=== PATIENT | male | born 1940 | race Caucasian/White ===

== ENCOUNTER → 2018-03-17 | Day surgery (SDC) | payer MEDICARE, OTHER ==
[2018-03-14 16:09] LABS: BASOPHILS % 0.3 % (0.0-1.0); EOSINOPHILS # (AUTO) 0.1 (0.0-0.4); EOSINOPHILS % 0.7 % (0.0-6.0); HEMATOCRIT 45.4 % (38.2-49.6); HEMOGLOBIN 15.6 g/dL (14.0-18.0); LYMPHOCYTES # (AUTO) 1.7 (1.0-3.2); LYMPHOCYTES % 18.3 % (18.0-39.1); MEAN CORPUSCULAR HEMOGLOBIN 30.8 pg (28-32); MEAN CORPUSCULAR HGB CONC 34.4 g/dL (31-35); MEAN CORPUSCULAR VOLUME 89.5 fL (81-99); MONOCYTES # (AUTO) 0.7 (0.2-0.8); MONOCYTES % 7.2 % (4.4-11.3); NEUTROPHILS # (AUTO) 6.7 (2.1-6.9); PLATELET COUNT 185 x10e3/uL (140-360); RED BLOOD COUNT 5.07 x10e6/uL (4.3-5.7); RED CELL DISTRIBUTION WIDTH 13.6 % (11.7-14.4)
[~2018-03-17] MED LIST: CELEBREX100 MG PO; DEXTROSE 5% 250ML 250 ML IV ONE; EPHEDRINE SULFATE INJ 50 MG/10 ML SYR ONE; FENTANYL CITRATE/PF 100MCG/2 ML INJ ONE; FINASTERIDE5 MG PO; HYDROXYCHLOROQ200 MG PO; HYOSCYAMINE SULFATE 0.5 MG/ML AMP ONE; LIDOCAINE HCL 2% LOCAL INJ 5 ML SDV VIAL INJ ONE; MIDAZOLAM HCL 2 MG/2 ML VIAL ONE; NITROSTAT0.4 MG PO; POTASSIUM CITR10 MEQ PO; PROPOFOL IV EMULSION 10 MG/ML 50 ML VIAL ONE; SUCRALFATE1 GM PO; TRAMADOL HCL50 M1 PO; TRICOR145 MG PO; UROXATRAL10 MG PO; XARELTO10 MG PO; Z.0.ALLOPURINOL100 M PO; Z.0.ATENOLOL50 MG PO; Z.0.CELEBREX100 MG PO; Z.0.GLYBURIDE5 MG PO; Z.0.JANUVIA50 MG PO; Z.0.NEXIUM40 MG PO; Z.0.OXYBUTYNIN CHLOR PO; Z.0.PLAVIX75 MG PO; Z.0.TRICOR48 MG PO; Z.0.ZETIA10 MG PO
--- NOTE | 2018-03-17 14:19 | Operative Report ---
DATE OF PROCEDURE: March 17, 2018 REFERRING PHYSICIAN: Dr. James Vieira PROCEDURES PERFORMED 1. Esophagogastroduodenoscopy with biopsies and esophageal dilatation. 2. Colonoscopy with polypectomy. INDICATIONS FOR EGD: Heartburn, indigestion, dysphagia. INDICATIONS FOR COLONOSCOPY: Colorectal cancer screening. Rectal bleeding. Sister with colon cancer. Personal history of colon polyps. MEDICATION: Patient was done under MAC. Please see anesthesiologist's note. PROCEDURE: With the patient in the left lateral decubitus position, the flexible fiberoptic Olympus gastroscope was introduced into the esophagus under direct visualization without any difficulty. There was some patchy erythema noted in the distal esophagus. A mild stricture was noted at the GE junction, and that was dilated to size 52-Angolan Martinez. The scope was then advanced with ease into the stomach. Mucosa overlying the antrum revealed some patchy, intense erythema and moderate edema, and biopsies were obtained and sent to stain for H. pylori. Minute hyperplastic-appearing polyps were noted in the body of the stomach, and some were partially excised with cold biopsy forceps. The pylorus was of normal contour and shape. It was intubated with ease, and the scope was advanced all the way to the 2nd portion of the duodenum. The scope was then withdrawn slowly. Mucosa overlying the proximal 2nd portion and the duodenal bulb appeared to be within normal limits. The scope was then withdrawn back into the stomach and retroflexed. Mucosa overlying the fundus and cardia appeared to be within normal limits. The scope was then straightened out. It was subsequently withdrawn. Patient tolerated the procedure well. IMPRESSION 1. Distal esophagitis, mild. 2. Esophageal stricture at gastroesophageal junction dilated to size 52-Angolan Martinez. 3. Gastritis, biopsied. Biopsies sent to stain for H. pylori. 4. Gastric polyps, body, hyperplastic appearing, some partially excised with cold biopsy forceps. PLAN: Follow up histology. Increase Nexium to 40 mg 1 p.o. a.c. b.i.d. The patient was then turned around. After adequate lubrication of the anal canal, a flexible fiberoptic Olympus colonoscope was inserted into the rectum with ease and advanced all the way to the cecum. It was then withdrawn slowly. Mucosa overlying the cecum appeared to be within normal limits. Mucosa overlying the ascending colon also was within normal limits. One polyp was snared and 1 polyp was hot biopsied from the transverse colon. Some minimal diverticulosis was noted to in the left colon. One minute polyp was hot biopsied from the sigmoid. The rectum grossly appeared to be within normal limits. The scope was then retroflexed into the distal rectum, and small internal hemorrhoids were noted, none of which was actively bleeding. The scope was then straightened out and it was subsequently withdrawn. Large external hemorrhoids were noted. Patient tolerated the procedure well. IMPRESSION 1. Transverse colon polyps times 2, one snared and one hot biopsied. 2. Diverticulosis, minimal. 3. Sigmoid colon polyp, hot biopsied. 4. Small internal hemorrhoids. 5. Large external hemorrhoids. PLAN: Follow up histology. Initiate high-fiber, low-fat diet. High-fiber supplement. Patient will need general surgical opinion regarding his large external hemorrhoids. The patient might benefit from a followup colonoscopy in 3 years. Job#: [id number] MH cc:JAMES VIEIRA M.D.
== END | disposition home or self-care (01) ==
LOC: OR 10:03
PROVIDERS: ATTEND Internal Medicine Gastroenterology
CPT/HCPCS: 36415; 43239; 43450; 45378; 45384; 82948; 85025; 88305; 88312; J1980; J2001; J2250